=== PATIENT | male | born 1940 | race Caucasian/White ===

== ENCOUNTER 2022-03-12 17:28 | Emergency (ER) | payer OTHER ==
--- OUTSIDE RECORDS SUMMARY | 2022-03-12 17:31 | XMS REPORT | Continuity of Care Document ---
:1940 Author Organization [facility] t Address [address] [place] [address] [address] [place] [address] Care Team Providers Name Role Phone Asked, No Pcp Primary Care Physician Unavailable Varsha KEITH, Juan Attending Clinician Payers Payer Name Policy Type Policy Number Effective Date Expiration Date S ource Problems Condition Condition Condition Status Onset Resolution Last Treating Co mments Source Name Details Category Date Date Treatment Clinician Date Atrial Atrial Disease Active 2017-02 Method[facility] fibrillati fibrillati 03-31 [facility] on [facility] 00:00: Hospita 00 l Allergies, Adverse Reactions, Alerts Allergy Allergy Status Severity Reaction(s) Onset Inactive Treating Comm ents Source Name Type Date Date Clinician Clindamy Propensi Active Rash Method i odilia ty to 11-11 adverse 00:00: Hospita reaction 00 l s to drug Family History Family Member Diagnosis Comments Start Date Stop Date Source Natural mother Hyperlipidemia Method [facility] Natural mother Hypertension [facility] Natural mother Heart disease [facility] Natural mother Heart failure [facility] Natural brother Asthma [facility] Natural father Arrhythmia [facility] Natural father Heart attack [facility] Natural father Heart disease [facility] father Hypertension [facility] Social History Social Habit Start Date Stop Date Quantity Comments Source Tobacco use and 2020-05-03 2020-05-03 Never used [facility] Co llege of exposure 00:00:00 00:00:00 Medicine Alcohol intake 2018-01-31 2018-01-31 Current drinker [facility] ([facility] Alcohol Comment 2017-11-11 2017-11-11 a month [facility] 00:00:00 00:00:00 Hospital Sex Assigned At 1940-01-161941-01-16 [facility] 00:00:00 00:00:00 Hospital Smoking Status Start Date Stop Date Source Never smoker [facility] o f Medicine Medications Ordered Filled Start Stop Current Ordering Indication Dosage Frequency Signature Comments Components Source Medication Medication Date Date Medication? Clinician (SIG) Name Name atorgeorgetati Yes 10mg Take 10 mg Nils n (LIPITOR) 3-12 by mouth. Col lege 10 MG 21:19: of tablet 18 Medicin e levothyroxi Yes 137ug Take 137 B aylor ne 3-12 mcg by [place] (SYNTHROID) 21:19: mouth. of 137 MCG 18 Medicin tablet e amlodipine Yes 5mg Take 5 mg Ba [facility]lor (NORVASC) 5 3-12 by mouth. Col lege MG tablet 21:19: of 18 Medicin e XARELTO 15 Yes [facility] MG TABS 3-11 College 00:00: of 00 Medicin e OFEV 100 MG Yes [facility] CAPS 1- [place] 00:00: of 00 Medicin e triamcinolo Yes [facility] ne 1- College (KENALOG) 00:00: of 0.1 % cream 00 Medicin e amLODIPine 2017-02 Yes 5mg QD Take 5 mg Me thodi (NORVASC) 5 2-[address] mg tablet 13:40: daily. Hospit a 52 l atorvastati 2017-02 Yes 10mg QD Take 10 mg Methodi n (LIPITOR) 2-[address] 10 MG 13:40: daily. Hospita tablet 52 l levothyroxi 2017-02 Yes 137ug QD Take 137 M ethodi ne 2-[address] (SYNTHROID, 13:40: mouth Hospi ta LEVOXYL) 52 every l 137 mcg morning. tablet Vital Signs Vital Name Observation Time Observation Value Comments Source Systolic blood 2020-05-03 21:16:00 169 mm[Hg] [facility] pressure Medicine Diastolic blood 2020-05-03 21:16:00 97 mm[Hg] [facility] of pressure Medicine Heart rate 2020-05-03 21:16:00 80 /min [facility] Body height 2020-05-03 21:16:00 175.3 cm [facility] Body weight 2020-05-03 21:16:00 81.647 kg [facility] BMI 2020-05-03 21:16:00 26.58 kg/m2 [facility] Procedures Procedure Date / Time Performed Performing Clinician Sourc e CREATININE SERUM 2020-05-03 21:06:00 Juan Maddox [facility] Yuri ege of Medicine CULTURE, 2020-05-03 21:06:00 Juan Maddox [facility] Jojo ge of URINE/SENSITIVITY ON Medicine ALL POCT URINALYSIS 2020-05-03 00:00:00 Juan Maddox [facility] Jojo ge of DIPSTICK Medicine Plan of Care Planned Activity Planned Date Details Comments Source Future Scheduled 2022-02-05 COVID-19 VACCINE (#1) [facility] Test 12:53:35 [code = COVID-19 VACCINE (#1)] Future Scheduled 2022-02-05 SHINGLES VACCINES (1 Met [facility] Test 12:53:35 of 2) [code = SHINGLES VACCINES (1 of 2)] Future Scheduled 2022-02-05 65+ PNEUMOCOCCAL [facility] Test 12:53:35 VACCINE (1 - PCV) [code = 65+ PNEUMOCOCCAL VACCINE (1 - PCV)] Future Scheduled 2022-02-05 INFLUENZA VACCINE Method [facility] Test 12:53:35 [code = INFLUENZA VACCINE] Future Scheduled TETANUS SHOT (ADULT) [facility] of Test [code = TETANUS SHOT Medicin e (ADULT)] Future Scheduled COVID-19 Vaccine (1) [facility] of Test [code = COVID-19 Medicine Vaccine (1)] Future Scheduled BMI FOLLOW UP PLAN [facility] of Test [code = BMI FOLLOW UP Medici ne PLAN] Future Scheduled Hepatitis C screening Ba [facility] Medicine Test (procedure) [code = Medicine [id number]] Future Scheduled ZOSTER VACCINE (1 of [facility] of Test 2) [code = ZOSTER Medicine VACCINE (1 of 2)] Future Scheduled [facility]IC[facility] (Initial[facility] [code = MEDICARE AWV Medicin e (Initial)] Future Scheduled FALL SCREEN [code = [facility] of Test FALL SCREEN] Medicine Future Scheduled PNEUMOVAX >=65 [facility] llege of Test (PPSV23) [code = Medicine PNEUMOVAX >=65 (PPSV23)] Future Scheduled FLU VACCINE > 6 MONTHS B [facility] [code = FLU VACCINE > Medici ne 6 MONTHS] Encounters Start End Encounter Admission Attending Care Care Encounter Source Date/Time Date/Time Type Type Clinicians Facility Department ID 2020-05-03 2020-05-03 Office Juan Maddox [id number] [facility] 14:38:27 15:08:27 Visit AMBULATOR [id number] College Y [id number] of [id number] Medi odilia 300 e Results Test Description Test Time Test Comments Results Result Comments Source CULTURE, URINE/SENSITIVITY ON ALL 2020-05-05 15:11:00 Test Item Value Reference Range Interpretation Comme nts CULTURE, URINE/SENSITIVITY ON SPECIMEN NUMBER: CULTURE, URINE/SENSITIVITY ALL (test code = 630-4) [id number] ON A SPECIMEN NUMBER: [id number] SPECI MEN COMMENT: URINE SOURCE: U RINE REPORT STATUS: FINAL F INAL REPORT: 05/05/2020 NO S IGNIFICANT PATHOGENS RECOV ERED. NO FURTHER WORKUP REQUIRED. SEE BELOW FOR ORGAN ISMS RECOVERED <10,000 CFU/ML GRAM NEGATIVE BACILLI SUSCEPT IBILITIES NOT PERFORMED DUE T O LOW COLONY COUNT <10,000 C FU/ML STAPHYLOCOCCUS SPECIES CONSIDERED NORM AL EVANS Unless Otherwis e Indicated, All Testing Per formed At: [facility], [address] [place] [address] 4 Supervisor [employer]: Chad Freeman [id number] [place] [id number] [facility] [id number] 09:02:50 Test Item Value Reference Range Interpretation Comments CREATININE (test code = See_Comment [Au tomated message] 2160-0) The system [employer] generated this result transmitted ref erence range: 0.80 - 1 .40 MG/DL. The refe rence range was not u sed to interpret this result as normal/abnor mal. EGFR AA (test code = See_Comment L [Autom ated message] 34587-3) The system [employer] generated this result transmitted ref erence range: >60 ML/MIN/1.73. Th e reference range was not used to int erpret this result as normal/abnormal . EGFR (test code = See_Comment L Unless Ot herwise 60829-1) Indicated, All Testing Perform ed At: [facility], [address] [place] [address] Laborator y Director: Tyrone Aguilar M.D. CLIA Number [id number] Cap Accreditation N o. [id number] [Autom ated message] The sy stem which generated this result transmit jennifer reference range : >60 ML/MIN/1.73. Th e reference range was not used to int erpret this result as normal/abnormal . Lab Interpretation (test Abnormal code = 19280-9) [facility] [id number] 00:00:00 Test Item Value Reference Range Interpretation Comments COLOR UA (test code = 5778-6) Sujey YELLOW/STRAW CLARITY UA (test code = 17508-3) Clear CLEAR GLUCOSE UA (test code = 5792-7) Negative NEGATIVE BILIRUBIN UA (test code = 5770-3) Negative NEGATIVE KETONES UA (test code = 24503-8) Negative NEGATIVE SPECIFIC GRAVITY UA (test code = 1.005-1.035 5811-5) BLOOD UA (test code = 5794-3) Negative NEGATIVE PH UA (test code = 5803-2) 5.0-9.0 PROTEIN UA (test code = 5804-0) 2+ NEGATIVE UROBILINOGEN UA (test code = 0.02 E.U/DL NORMAL MG/DL 5818-0) LEUKOCYTE ESTERASE UA (test code Negative NEGATIVE = 5799-2) NITRITE UA (test code = 5802-4) Negative NEGATIVE REDUCING SUBSTANCES URINE (test code = 79876-5) [facility] [place]
[2022-03-12] MEDS ORDERED: TRAMADOL HCL 50 MG TAB ONE (18:11)
--- NOTE | 2022-03-12 18:39 | RAD REPORT ---
EXAM DESCRIPTION: RAD - Chest Single View - 03/12/2022 6:26 pm CLINICAL HISTORY: BLUNT CHEST TRAUMA Chest pain. COMPARISON: Chest Pa And Lat (2 Views) dated 08/05/2017; CHEST PA AND LAT 2 VIEW dated 03/13/2014; SALLIE ST SINGLE VIEW dated 08/25/2007; CHEST PA AND LAT 2 VIEW dated 03/07/1999; Ribs Left dated 03/12/2022 FINDINGS: Portable technique limits examination quality. Bibasilar lung opacities are present which probably represent infiltrate/ pneumonia. The heart is nor mal in size. No displaced fractures.
--- NOTE | 2022-03-12 18:40 | RAD REPORT ---
EXAM DESCRIPTION: RAD - Ribs Left - 03/12/2022 6:26 pm CLINICAL HISTORY: lower posterior ribs Pain and swelling COMPARISON: Chest Single View dated 03/12/2022 FINDINGS: Mild fracture is seen lateral left ninth rib.
--- NOTE | 2022-03-12 18:49 | ER ---
Nurse's Notes [facility] Name: Hema Velez Age: 82 yrs Sex: Male : 1940 Arrival Date: 03/12/2022 Time: 17:32 Bed 9 Private MD: Diagnosis: Fracture of one rib, left side;Pneumonia, unspecified organism Presentation: 03/12 17:34 Chief complaint: Patient states: fell in the bath tub, he hit the side of the steel tub iw with left side , now feels like he broke some ribs , happened this morning at 0830. 17:34 Acuity: CATIA 4 iw 17:34 Method Of Arrival: Ambulatory iw 17:35 Coronavirus screen: At this time, the client does not indicate any symptoms associated iw with coronavirus-19. Ebola Screen: Patient negative for fever greater than or equal to 101.5 degrees Fahrenheit, and additional compatible Ebola Virus Disease symptoms Patient denies exposure to infectious person. Patient denies travel to an Ebola-affected area in the 21 days before illness onset. No symptoms or risks identified at this time. Initial Sepsis Screen: Does the patient meet any 2 criteria? No. Patient's initial sepsis screen is negative. Does the patient have a suspected source of infection? No. Patient's initial sepsis screen is negative. Risk Assessment: Do you want to hurt yourself or someone else? Patient reports no desire to harm self or others. Onset of symptoms was March 12, 2022. 17:38 Acuity: CATIA 3 iw Historical: - Allergies: 17:36 PENICILLINS; iw - Home Meds: 17:36 nintedanib 100 mg oral cap 1 cap 2 times per day [Active]; levothyroxine 137 mcg cap 1 iw cap once daily [Active]; atorvastatin 10 mg oral tab 1 tab once daily [Active]; amlodipine 10 mg tab 1 tab once daily [Active]; Xarelto 15 mg oral tab 1 tab once daily [Active]; - PMHx: 17:36 Hypothyroidism; Hypercholesterolemia; Hypertensive disorder; Atrial fibrillation; iw - Immunization history:: Adult Immunizations up to date. - Social history:: Smoking status: Patient denies any tobacco usage or history of. Screenin:45 [facility] ED Fall Risk Assessment (Adult) History of falling in the last 3 months, ll1 including since admission Yes- single mechanical fall (1 pt) Impaired Gait Yes (1 pt) Score/Fall Risk Level 0 - 2 = Low Risk Oriented to surroundings, Maintained a safe environment, Educated pt \T\ family on fall prevention, incl call for assistance when getting out of bed, Hourly rounding (assess needs \T\ fall precautionary measures) done. Abuse screen: Denies threats or abuse. Nutritional screening: No deficits noted. Tuberculosis screening: No symptoms or risk factors identified. Assessment: 17:44 General: Appears uncomfortable, Behavior is calm, cooperative, appropriate for age. ll1 Pain: Complains of pain in L rib cage area Quality of pain is described as aching. Respiratory: Reports pain with respiration. Musculoskeletal: Circulation, motion, and sensation intact. Capillary refill < 3 seconds, Reports pain in L rib cage area. Injury Description: Bruise. 18:13 Reassessment: No changes from previously documented assessment. Patient and/or family ll1 updated on plan of care and expected duration. Pain level reassessed. Patient is alert, oriented x 3, equal unlabored respirations, skin warm/dry/pink. 19:00 Reassessment: No changes from previously documented assessment. Patient and/or family ll1 updated on plan of care and expected duration. Pain level reassessed. Patient is alert, oriented x 3, equal unlabored respirations, skin warm/dry/pink. Vital Signs: 17:35 BP 163 / 82; Pulse 70; Resp 16; Temp 98.2; Pulse Ox 92% on R/A; iw ED Course: 17:32 Patient arrived in ED. mr 17:35 Triage completed. iw 17:38 Yuni Anthony FNP-C is [facility]. kb 17:38 Dajuan Louis MD is Attending Physician. kb 17:38 Arm band placed on. iw 17:44 Antonia Rodriguez, DAMION is Primary Nurse. ll1 17:45 Patient has correct armband on for positive identification. Bed in low position. Call ll1 light in reach. Side rails up X 1. Cardiac monitoring not applicable on this patient. 18:28 Chest Single View XRAY In Process Unspecified. EDMS 18:28 Ribs Left XRAY In Process Unspecified. EDMS 19:00 No provider procedures requiring assistance completed. Patient did not have IV access ll1 during this emergency room visit. Administered Medications: 18:13 Drug: traMADol 50 mg {Note: pain 8/10 with movement. RASS 0.} Route: PO; ll1 18:50 Follow up: Response: No adverse reaction; Pain is decreased; RASS: Alert and Calm (0) 1 Medication: 17:45 VIS not applicable for this client. ll1 Outcome: 18:49 Discharge ordered by . kb 19:00 Patient left the ED. ll1 19:00 Discharged to home ambulatory. ll1 19:00 Condition: stable 19:00 Discharge instructions given to patient, family, Instructed on discharge instructions, follow up and referral plans. no drinking with medication, no driving heavy equipment, medication usage, Demonstrated understanding of instructions, follow-up care, medications, Prescriptions given X 2. Signatures: Dispatcher [employer] EDYuni Lynne, EDENILSON MANAGER MOTOR-Mey Valdez Marina Monten[place], RN RN Antonia Tran RN RN 1 Corrections: (The following items were deleted from the chart) 17:38 17:36 Allergies: No Known Allergies; yao samayoa
--- NOTE | 2022-03-12 18:49 | EDPHYS ---
Physician Documentation [facility] Name: Hema Velez Age: 82 yrs Sex: Male : 1940 Arrival Date: 03/12/2022 Time: 17:32 Bed 9 Private MD: ED Physician Dajuan Louis HPI: 03/12 18:04 This 82 yrs old Male presents to ER via Ambulatory with complaints of Fall Injury, Rib kb pain. 18:04 Details of fall: The patient fell from an upright position, while standing. Onset: The kb symptoms/episode began/occurred this morning. Associated injuries: The patient sustained left subscapular area and left mid back, decreased range of motion, painful injury. Severity of symptoms: At their worst the symptoms were moderate, in the emergency department the symptoms are unchanged. The patient has not experienced similar symptoms in the past. The patient has not recently seen a physician. Pt reports pain to left posterior lower ribs s/p falling in the tub this morning. Denies shortness of breath, hitting head, loc. . Historical: - Allergies: 17:36 PENICILLINS; iw - Home Meds: 17:36 nintedanib 100 mg oral cap 1 cap 2 times per day [Active]; levothyroxine 137 mcg cap 1 iw cap once daily [Active]; atorvastatin 10 mg oral tab 1 tab once daily [Active]; amlodipine 10 mg tab 1 tab once daily [Active]; Xarelto 15 mg oral tab 1 tab once daily [Active]; - PMHx: 17:36 Hypothyroidism; Hypercholesterolemia; Hypertensive disorder; Atrial fibrillation; iw - Immunization history:: Adult Immunizations up to date. - Social history:: Smoking status: Patient denies any tobacco usage or history of. ROS: 18:08 Constitutional: Negative for fever, chills, and weight loss. kb 18:08 Cardiovascular: Positive for chest pain, with movement, of the left mid back and left subscapular area. 18:08 All other systems are negative. Exam: 18:08 Constitutional: This is a well developed, well nourished patient who is awake, alert, kb and in no acute distress. Head/Face: Normocephalic, atraumatic. ENT: Moist Mucous membranes Cardiovascular: Regular rate and rhythm with a normal S1 and S2. No gallops, murmurs, or rubs. No pulse deficits. Respiratory: Respirations even and unlabored. No increased work of breathing. Talking in full sentences Skin: Warm, dry with normal turgor. Normal color. MS/ Extremity: Pulses equal, no cyanosis. Neurovascular intact. Full, normal range of motion. Neuro: Awake and alert, GCS 15, oriented to person, place, time, and situation. Moves all extremities. Normal gait. Psych: Awake, alert, with orientation to person, place and time. Behavior, mood, and affect are within normal limits. 18:08 Back: pain, that is moderate, of the left subscapular area and left mid back. Vital Signs: 17:35 BP 163 / 82; Pulse 70; Resp 16; Temp 98.2; Pulse Ox 92% on R/A; iw MDM: 17:41 Patient medically screened. kb 18:04 Data reviewed: vital signs, nurses notes. kb 18:08 Differential diagnosis: contusion, fracture, strain. kb 18:42 Consideration of Admission/Observation Escalation of care including kb admission/observation considered. Historians other than the Patient: Daughter/Son: daughter. Counseling: I had a detailed discussion with the patient and/or guardian regarding: the historical points, exam findings, and any diagnostic results supporting the discharge/admit diagnosis, radiology results, the need for outpatient follow up, a family practitioner. ED course: Pt has no cough, congestion, fever. Resp even and unlabored, lungs clear bilaterally. 03/12 17:41 Order name: Chest Single View XRAY; Complete Time: 18:40 kb 03/12 17:41 Order name: Ribs Left XRAY; Complete Time: 18:42 kb Administered Medications: 18:13 Drug: traMADol 50 mg {Note: pain 8/10 with movement. RASS 0.} Route: PO; ll1 18:50 Follow up: Response: No adverse reaction; Pain is decreased; RASS: Alert and Calm (0) ll1 Disposition: 19:17 Co-signature as Attending Physician, Dajuan Louis MD I agree with the assessment and kdr plan of care. Disposition Summary: 03/12/22 18:49 Discharge Ordered Location: Home Condition: Stable kb Diagnosis - Fracture of one rib, left side kb - Pneumonia, unspecified organism kb Followup: kb - With: Emergency Department - When: As needed - Reason: Worsening of condition Followup: kb - With: Private Physician - When: 2 - 3 days - Reason: Recheck today's complaints, Continuance of care, Re-evaluation by your physician Discharge Instructions: - Discharge Summary Sheet kb - Community-Acquired Pneumonia, Adult, [id number] kb - Rib Fracture, [id number] kb Forms: - Medication Reconciliation Form kb - Thank You Letter kb - Antibiotic Education kb - Prescription Opioid Use kb Prescriptions: - Tramadol 50 mg Oral Tablet - take 1 tablet by ORAL route every 8 hours as needed; 12 tablet; Refills: 0, kb Product Selection Permitted - Zithromax 500 mg Oral Tablet - take 1 tablet by ORAL route once daily for 5 days; 5 tablet; Refills: 0, kb Product Selection Permitted Signatures: Dispatcher [employer] EDMS Yuni Anthony, CAITIE-C CAITIE-Dajuan Granados MD MD kdr Williams, Irene, DAMION RN iw Antonia Rodriguez RN RN ll1 Corrections: (The following items were deleted from the chart) 17:38 17:36 Allergies: No Known Allergies; yao
[2022-03-12 20:32] VITALS: BP 163/82; TEMP 98.2; O2SAT 92
== END 2022-03-12 19:00 | disposition home or self-care (01) ==
LOC: ER 17:28
DX: S22.32XA Fracture of one rib, left side, initial encounter for closed fracture (principal); J18.9 Pneumonia, unspecified organism; W18.2XXA Fall in (into) shower or empty bathtub, initial encounter; Y93.E1 Activity, personal bathing and showering; Y92.012 Bathroom of single-family (private) house as the place of occurrence of the external cause; E03.9 Hypothyroidism, unspecified; E78.00 Pure hypercholesterolemia, unspecified; I10 Essential (primary) hypertension; I48.91 Unspecified atrial fibrillation; Z79.01 Long term (current) use of anticoagulants; Z88.0 Allergy status to penicillin
CPT/HCPCS: 71045